=== PATIENT | female | born 1955 | race Caucasian/White ===

== ENCOUNTER 2018-06-03 11:17 | Observation (INO) ==
[2018-06-03] MEDS ORDERED: SODIUM CHLORIDE 0.9% 500 ML IV STA (11:46)
[2018-06-03 12:06] LABS: PT Patient Result 11.1 SECS
[2018-06-03 12:13] LABS: Basophils # 0.1 10*3/uL (0.0-0.2); Basophils % 0.6 % (0.0-0.8); Eosinophils % 0.1 % (0.00-10.9); Hematocrit 43.5 VOL% (35.7-47.0); Hemoglobin 14.6 GM/DL (12.0-16.0); Immature Granulocytes % 0.6 %; Immature Granulocytes Absolute 0.06 #; Lymphocytes # 1.3 10*3/uL (1.4-4.0); Lymphocytes % 12.2 % (21.3-54.2); Mean Corpuscular HGB Conc 33.6 GM/DL (32-36); Mean Corpuscular Hemoglobin 34 PG (27-34); Mean Corpuscular Volume 100.5 FL (87-102); Mean Platelet Volume 9.2 FL (9.6-12.0); Monocytes # 0.5 10*3/uL (0.11-0.8); Monocytes % 5.2 % (1.7-12.7); Neutrophils # 8.5 10*3/uL (1.4-7.4); Neutrophils % 81.3 % (38.7-73.9); Platelet Count 208 T/CUMM (130-400); Red Blood Count 4.33 MC/CUMM (3.8-5.5); Red Cell Distribution Width 14.3 % (9.3-17.3); White Blood Count 10.4 T/CUMM (4-12)
[2018-06-03 12:18] LABS: Lactic Acid 1.1 MMOL/L (0.4-2.0)
[2018-06-03 12:18] LABS: Apearance,Urine CLEAR (Clear); Blood, Urine Negative (Negative); Glucose,Urine (UA) Negative (Negative); Hyaline Casts,Urine 18 /LPF (0-3); Ketones,Urine 20 mg/dL (Negative); Mucus,Urine Occasional /LPF (Occasional); Nitrite,Urine Positive (Negative); Protein,Urine 30 MG/DL; RBC,Urine 4 /HPF (0-4); Squamous Epithelial Cell,Urine Occasional /HPF (0-10); Urine Color Amber (Yellow); Urine Specific Gravity 1.033 (1.001-1.035); WBC,Urine 8 /HPF (0-6)
[2018-06-03 12:19] LABS: Bilirubin,Urine Small mg/dL (Negative)
[2018-06-03 12:23] LABS: Alanine Aminotransferase 9 U/L (13-56); Albumin 4.5 G/DL (3.4-5.0); Alkaline Phosphatase 93 U/L (45-117); Aspartate Amino Transferase 14 U/L (0-37); Blood Urea Nitrogen 16 MG/DL (7-18); Calcium 8.9 MG/DL (8.5-10.1); Glucose 105 MG/DL (74-106); Osmolality,Calculated 273.8 MOS/KG (273-304); Potassium 3.5 MMOL/L (3.5-5.1); Sodium 137 MMOL/L (136-145); Total Protein 8.2 G/DL (6.4-8.3)
[2018-06-03] MEDS ORDERED: PROPOFOL 200 MG/20 ML VIAL IV ONE (12:24)
[2018-06-03 12:30] LABS: Barbiturates Screen,Urine Negative (Negative); Benzodiazepines Screen,Urine Positive (Negative); Cannabinoid Screen,Urine Negative (Negative); Opiate Screen,Urine Negative (Negative); Phencyclidine Screen,Urine Negative (Negative)
[2018-06-03 12:40] LABS: Anisocytosis Slight; Platelet Estimate Normal
[2018-06-03 12:41] LABS: Macrocytosis Slight
[2018-06-03] MEDS ORDERED: cefTRIAXone 1,000 MG in SODIUM CHLORIDE 0.9% 100 ML IV STA (12:43)
[2018-06-03 13:18] LABS: Sedimentation Rate-Westergren 4 MM/HR (0-30)
[2018-06-03] MEDS ORDERED: HEPARIN 5,000 UNIT/1 ML VIAL SUBCUT SCH (13:30)
[2018-06-03] MEDS ORDERED: LEVOFLOXACIN INJ 500 MG in PREMIX 1 EACH IV SCH (13:30)
[2018-06-03] MEDS ORDERED: ONDANSETRON 4 MG/2 ML VIAL IV PRN (13:32)
[2018-06-03] MEDS ORDERED: ACETAMINOPHEN 325 MG TABLET PO PRN (13:32)
[2018-06-03] MEDS ORDERED: PROMETHAZINE 25 MG/1 ML VIAL IM PRN (13:32)
[2018-06-03] MEDS ORDERED: GLUCAGON 1 MG VIAL IM PRN ×2 (13:34→18:30)
[2018-06-03] MEDS ORDERED: DEXTROSE 50% 25 GM/50 ML SYRINGE IV PRN (13:34)
[2018-06-03 14:07] LABS: Risk Ratio 4.43; VLDL CHOLESTEROL 26.6 MG/DL
[2018-06-03] MEDS ORDERED: cloNIDine 0.1 MG TABLET PO SCH (15:00)
[2018-06-03] MEDS ORDERED: METOCLOPRAMIDE 10 MG TABLET PO SCH (16:30)
[2018-06-03] MEDS ORDERED: LACTULOSE 160 GM/240 ML BOTTLE RECTAL ONE (17:00)
[2018-06-03] MEDS: SODIUM CHLORIDE 0.9% 1,000 ML IV SCH ×2 (17:37→23:26)
[2018-06-03] MEDS: INSULIN REGULAR 100 UNIT/ML SUBCUT SCH ×2 (17:39→21:30)
[2018-06-03] MEDS ORDERED: METHADONE 10 MG TABLET PO SCH (18:00)
[2018-06-03] MEDS ORDERED: DEXTROSE 50% 25 GM/50 ML VIAL IV PRN (18:30)
[2018-06-03] MEDS ORDERED: tiZANidine 4 MG TABLET PO SCH (21:00)
[2018-06-03] MEDS ORDERED: FAMOTIDINE 20 MG TABLET PO SCH (21:00)
[2018-06-03] MEDS: METHOCARBAMOL INJ 500 MG in SODIUM CHLORIDE 0.9% 100 ML IV SCH (21:26)
[2018-06-03] MEDS: BUDESONIDE/FORMOTEROL 160-4.5 INHALER 6 GM INH SCH (21:30)
[2018-06-03] MEDS: LACTULOSE 20 GM/30 ML UDCUP PO SCH (23:25)
[2018-06-04] MEDS: METHOCARBAMOL INJ 500 MG in SODIUM CHLORIDE 0.9% 100 ML IV SCH (03:45)
[2018-06-04 05:12] LABS: Basophils % 0.3 % (0.0-0.8); Eosinophils % 0.5 % (0.00-10.9); Immature Granulocytes % 0.5 %; Immature Granulocytes Absolute 0.03 #; Lymphocytes # 1.2 10*3/uL (1.4-4.0); Lymphocytes % 19.7 % (21.3-54.2); Mean Corpuscular HGB Conc 33.3 GM/DL (32-36); Mean Corpuscular Hemoglobin 34 PG (27-34); Mean Corpuscular Volume 101.3 FL (87-102); Mean Platelet Volume 9.1 FL (9.6-12.0); Monocytes # 0.5 10*3/uL (0.11-0.8); Neutrophils # 4.2 10*3/uL (1.4-7.4); Platelet Count 155 T/CUMM (130-400); Red Blood Count 3.85 MC/CUMM (3.8-5.5); Red Cell Distribution Width 14.1 % (9.3-17.3); White Blood Count 5.9 T/CUMM (4-12)
[2018-06-04 05:29] LABS: Albumin 3.7 G/DL (3.4-5.0); Bilirubin,Total 0.8 MG/DL (0.2-1.0); Calcium 8.6 MG/DL (8.5-10.1); Osmolality,Calculated 275.5 MOS/KG (273-304); Potassium 4.1 MMOL/L (3.5-5.1); Total Protein 7.1 G/DL (6.4-8.3)
[2018-06-04] MEDS: LACTULOSE 20 GM/30 ML UDCUP PO SCH (06:46)
[2018-06-04 07:37] VITALS: BP 163/87
[2018-06-04] MEDS ORDERED: ASPIRIN EC 81 MG TABLET PO SCH (09:00)
[2018-06-04] MEDS ORDERED: MONTELUKAST 10 MG TABLET PO SCH (09:00)
[2018-06-04] MEDS ORDERED: CLOPIDOGREL 75 MG TABLET PO SCH (09:00)
[2018-06-04] MEDS ORDERED: ATORVASTATIN 20 MG TABLET PO SCH (09:00)
[2018-06-04] MEDS ORDERED: DILTIAZEM CD 300 MG CAPSULE PO SCH (09:00)
[2018-06-04] MEDS ORDERED: IPRATROPIUM 500 MCG/2.5 ML NEB RESP TX SCH (09:00)
[2018-06-04] MEDS ORDERED: SERTRALINE 100 MG TABLET PO SCH (09:00)
[2018-06-04] MEDS ORDERED: PIOGLITAZONE 15 MG TABLET PO SCH (09:00)
[2018-06-04] MEDS: INSULIN REGULAR 100 UNIT/ML SUBCUT SCH (10:34)
[2018-06-04] MEDS: SODIUM CHLORIDE 0.9% 1,000 ML IV SCH (10:34)
[2018-06-04] MEDS: BUDESONIDE/FORMOTEROL 160-4.5 INHALER 6 GM INH SCH (10:35)
== END 2018-06-04 10:46 | disposition home health service (06) ==
LOC: EDBD → EDUNIT# → N.ED 11:17 → INTOOBSV 13:32 → N.EDINP 13:32 → N.2W 14:12 → N.5E 16:44
PROVIDERS: ADMIT Internal Medicine; ATTEND Internal Medicine